=== PATIENT | female | born 1965 | race Asian ===

== ENCOUNTER 2020-07-24 13:30 | Emergency (ER) | payer BC, SELFPAY ==
[~2020-07-24] VITALS: Ht 162.6 cm; Wt 64.4 kg
[2020-07-24 13:30] VITALS: BP_SYST 138
[2020-07-24] MEDS ORDERED: ASPIRIN 81 MG TAB.CHEW PO ONE (13:45)
[2020-07-24 14:18] LABS: CALCIUM 9.3 mg/dL (8.4-11.0); CREATININE 0.69 mg/dL (0.55-1.30); POTASSIUM 3.3 mmol/L (3.5-5.1)
[2020-07-24 14:22] LABS: BASOPHILS % (AUTO) 0.5 % (0.0-2.0); EOSINOPHILS # (AUTO) 0.1 K/uL (0.0-0.4); HEMATOCRIT 36.5 % (36-48); HEMOGLOBIN 12.4 g/dL (12.0-16.0); LYMPHOCYTES # (AUTO) 2.5 K/uL (1.0-5.5); LYMPHOCYTES % (AUTO) 38.8 % (20.5-51.5); MEAN CORPUSCULAR HEMOGLOBIN 29 pg (27-31); MEAN CORPUSCULAR HGB CONC 34 % (32-36); MEAN CORPUSCULAR VOLUME 85 fL (79.0-98.0); MONOCYTES # (AUTO) 0.7 K/uL (0.0-1.0); MONOCYTES % (AUTO) 10.8 % (1.7-9.3); NEUTROPHILS % (AUTO) 47.9 % (40.0-70.0); PLATELET COUNT (AUTO) 460 K/uL (130-430); RED BLOOD CELL COUNT(AUTO) 4.29 MIL/uL (4.2-6.2); RED CELL DISTRIBUTION WIDTH 12.5 % (9.0-15.0); WHITE BLOOD COUNT (AUTO) 6.4 K/uL (4.8-10.8)
[2020-07-24 14:24] LABS: ALBUMIN 3.5 g/dL (3.4-4.8); TOTAL BILIRUBIN 0.4 mg/dL (0.0-1.0)
== END 2020-07-24 15:48 | disposition home or self-care (01) ==
LOC: SED 13:30
DX: M79.602 Pain in left arm (principal); R06.02 Shortness of breath
CPT/HCPCS: 36415; 71045; 80053; 82550-TC; 84484; 85025; 85379; 93005; 99285